=== PATIENT | female | born 1975 | race Two or more races ===

== ENCOUNTER 2018-07-15 23:14 | Emergency (ER) | payer SELFPAY ==
[~2018-07-15] VITALS: Ht 157.5 cm; Wt 52.0 kg
[2018-07-15] MEDS ORDERED: FLONASE (23:24)
[2018-07-15] MEDS ORDERED: PSEUDOEPHEDRINE ×2 (23:24)
[2018-07-16] MEDS ORDERED: PROCHLORPERAZINE 5 MG/ML, 2ML IVPush ONE (00:30)
[2018-07-16] MEDS ORDERED: DIPHENHYDRAMINE 50 MG/ML, 1ML IVPush ONE (00:30)
[2018-07-16] MEDS ORDERED: KETOROLAC 30 MG/1 ML IVPush ONE (00:30)
[2018-07-16] MEDS ORDERED: SODIUM CHLORIDE 0.9% 1,000ML IVBOLUS ONE (00:30)
[2018-07-16 00:46] LABS: BASOPHILS # (AUTO) 0.03 x10^3/uL (0-0.1); BASOPHILS % (AUTO) 1 % (0-1); EOSINOPHILS # (AUTO) 0.16 x10^3/uL (0-0.4); EOSINOPHILS % (AUTO) 3 % (1-7); LYMPHOCYTES # (AUTO) 2.46 x10^3/uL (1-3.4); LYMPHOCYTES % (AUTO) 43 % (22-44); MD NO; MEAN CORPUSCULAR HGB CONC 33.6 g/dL (32.4-35.8); MEAN CORPUSCULAR VOLUME 86.4 fL (80-100); MEAN PLATELET VOLUME 7.9 fL (7.4-10.4); MONOCYTES # (AUTO) 0.42 x10^3/uL (0.2-0.8); MONOCYTES % (AUTO) 7 % (2-9); NEUTROPHILS # (AUTO) 2.63 x10^3/uL (1.8-6.8); NEUTROPHILS % (AUTO) 46 % (42-75); PLATELET COUNT 293 x10^3/uL (130-400); RED BLOOD COUNT 4.25 x10^6/uL (3.82-5.3); RED CELL DISTRIBUTION WIDTH 18.9 % (9.6-15.2)
[2018-07-16 00:53] LABS: ALBUMIN 3.8 g/dL (3.4-5.0); ANION GAP 6 mmol/L (5-15); CALCIUM 8.2 mg/dL (8.5-10.1); CHLORIDE 109 mmol/L (98-107); CREATININE 0.52 mg/dL (0.55-1.02)
[2018-07-16] MEDS ORDERED: PROCHLORPERAZINE 5 MG/ML, 2ML ONE (01:12)
[2018-07-16] MEDS ORDERED: DIPHENHYDRAMINE 50 MG/ML, 1ML ONE (01:13)
[2018-07-16] MEDS ORDERED: KETOROLAC 30 MG/1 ML ONE (01:13)
[2018-07-16 03:41] VITALS: BP 141/51
== END 2018-07-16 03:43 | disposition home or self-care (01) ==
LOC: ED 07-16 00:46
DX: R51 Headache (principal); R42 Dizziness and giddiness; R11.0 Nausea; K21.0 Gastro-esophageal reflux disease with esophagitis
CPT/HCPCS: 36415; 70450; 80048; 82040; 84703; 85025; 93005; 96361; 96374; 96375; 99285; J0780; J1200; J1885; J7030